=== PATIENT | female | born 1985 | race Two or more races ===

== ENCOUNTER 2017-09-12 09:30 | Inpatient (IN) | payer OTHER ==
[~2017-09-12] VITALS: Ht 152.4 cm; Wt 70.8 kg
[2017-09-27] MEDS ORDERED: ULTRACET PO (09:16)
[2017-09-27] MEDS ORDERED: COLACE100 MG PO (09:16)
== END 2017-09-27 11:58 | DRG 741 ==
LOC: RECOVERY 09-19 09:30 → O/R 09-26 06:15 → OB/GYN 09-26 13:13
PROVIDERS: Obstetrics & Gynecology Gynecologic Oncology
PROC: 0UT70ZZ Resection of Bilateral Fallopian Tubes, Open Approach (ICD-10-PCS; 2017-09-26)
PROC: 07BC0ZX Excision of Pelvis Lymphatic, Open Approach, Diagnostic (ICD-10-PCS; 2017-09-26)
PROC: 0UT90ZZ Resection of Uterus, Open Approach (ICD-10-PCS; principal; 2017-09-26 10:00)
DX: C53.8 Malignant neoplasm of overlapping sites of cervix uteri (principal)